=== PATIENT | male | born 1985 | race Caucasian/White ===

== ENCOUNTER 2017-05-24 16:51 | Emergency (ER) | payer BC ==
[2017-05-24] MEDS ORDERED: IBUPROFEN 800 MG TABLET PO ONE (17:39)
--- NOTE | 2017-05-24 17:41 | ER Document Report ---
HPI - HPI Patient complains to provider of: Right calf pain Onset: This afternoon Onset/Duration: Sudden Quality of pain: Sharp Pain Level: 3 Context: Pt states that he was playing basketball and came down on the ball of his right foot and felt a sudden pop in his right calf. Patient complains of pain with ambulation since then. Associated Symptoms: Other - r calf pain Exacerbated by: Standing, Movement, Walking Relieved by: Denies Similar symptoms previously: No Recently seen / treated by doctor: No - ROS ROS below otherwise negative: Yes Systems Reviewed and Negative: Yes All other systems reviewed and negative - CONSTITUTIONAL Constitutional: DENIES: Fever - CARDIOVASCULAR Cardiovascular: DENIES: Chest pain - MUSCULOSKELETAL Musculoskeletal: REPORTS: Extremity pain, Swelling - DERM Skin Color: Normal Skin Problems: None Past Medical History - General Information source: Patient - Social History Smoking Status: Never Smoker Chew tobacco use (# tins/day): No Frequency of alcohol use: Occasional Drug Abuse: None 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 IN LAST 30 DAYS: No - HEENT HEENT: Atraumatic, Normocephalic - NECK Neck: Normal Inspection - RESPIRATORY Respiratory: Breath Sounds Normal, No Respiratory Distress O2 Sat by Pulse Oximetry: 98 - CARDIOVASCULAR Cardiovascular: Regular Rate, Regular Rhythm, No Murmur Pulses: Normal: Posterior tibial, Dorsalis pedis - MUSCULOSKELETAL/EXTREMETIES Musculoskeletal/Extremeties: MAEW, Tender Notes: Patient with right gastrocnemius muscle tenderness and tenderness along the Achilles tendon. Normal squeeze test. No concern for compartment syndrome. 1 + edema noted to right gastrocnemius. - NEURO Level of Consciousness: Awake, Alert, Appropriate Motor/Sensory: No Motor Deficit - DERM Integumentary: Warm, Dry, No Rash Course - Re-evaluation Re-evalutation: 05/24/17 19:28 Discussed results of patient's ultrasound with patient. Discussed worsening signs or symptoms that patient should return immediately for such as Tightness, increased pain, foot weakness, or any other concerning symptoms. - Vital Signs Vital signs: Temp Pulse Resp BP Pulse Ox 98.5 F 87 16 142/73 H 98 05/24/17 17:06 05/24/17 17:06 05/24/17 17:06 05/24/17 17:06 05/24/17 17:06 - Diagnostic Test Radiology reviewed: Reports reviewed Discharge - Discharge Clinical Impression: Elevated blood pressure reading Gastrocnemius strain Qualifiers: Encounter type: initial encounter Laterality: right Qualified Code(s): S86.111A - Strain of other muscle(s) and tendon(s) of posterior muscle group at lower leg level, right leg, initial encounter Condition: Stable Disposition: HOME, SELF-CARE Instructions: Muscle Strain ([facility]), Oral Narcotic Medication ([facility]), Ice & Elevation ([facility]), Use of Crutches ([facility]), Family Physicians / Practices Additional Instructions: Return immediately for any new or worsening symptoms Followup with your primary care provider, call tomorrow to make a followup appointment Weightbearing as tolerated Follow-up with orthopedic doctor for further evaluation, call Friday for an appointment Your blood pressure was mildly elevated today, recheck with your primary doctor to have this reevaluated. Prescriptions: Hydrocodone/Acetaminophen [[place] 5-325 Tablet] 1 each PO Q4 PRN #15 tablet PRN Reason: Naproxen [Naprosyn 250 Nmg Tablet] 1 tab PO BID #14 tablet Referrals: [facility] ([place]) [Provider Group] - Follow up as needed
--- NOTE | 2017-05-24 19:07 | RADIOLOGY REPORT (SQ) ---
EXAM DESCRIPTION: U/S EXTREMITY NONVASCULAR COMP COMPLETED DATE/TIME: 05/24/2017 6:52 pm REASON FOR STUDY: felt pop in calf, pain along achilles and calf COMPARISON: None. TECHNIQUE: Dynamic and static grayscale images acquired of the localized site of clinical concern an d recorded on PACS. Additional selected color Doppler and spectral images recorded. SITE OF CONCERN: Right Achilles tendon and calf LIMITATIONS: None. FINDINGS: SKIN AND SUBCUTANEOUS TISSUES: No masses. No fluid collections. No edema. No foreign kitty s. DEEP SOFT TISSUES/MUSCLES: No masses. The tiny (0.7 x 1.9 x 0.4 cm) hypoechoic focus is seen in the patient- identified area of discomfort, possibly on the basis of a small amount of edema. The Achill es tendon remains intact, and demonstrates normal thickness and echogenicity. VASCULAR: No increased or decreased vascularity. OTHER: No other significant finding. IMPRESSION: The Achilles tendon demonstrates normal structure, thickness, and echogenicity. A tiny hypoechoic focus seen adjacent to the musculature may represent a small amount of edema. TECHNICAL DOCUMENTATION: JOB ID: [id number] [employer]- All Rights Reserved
[2017-05-24] MEDS ORDERED: HYDROCODONE/ACETAMINOPHEN 5-325 MG 6 TAB/DSPK PO PRN (19:28)
[2017-05-24 20:00] VITALS: BP 127/76
== END 2017-05-24 20:08 | disposition home or self-care (01) ==
LOC: ER 16:51
DX: S86.111A Strain of other muscle(s) and tendon(s) of posterior muscle group at lower leg level, right leg, initial encounter (principal); R03.0 Elevated blood-pressure reading, without diagnosis of hypertension; X50.0XXA Overexertion from strenuous movement or load, initial encounter; Y93.67 Activity, basketball
CPT/HCPCS: 76881; 99283